=== PATIENT | male | born 1990 ===

== ENCOUNTER 2017-07-30 12:48 | Emergency (ER) | payer MEDICAID, OTHER ==
[2017-07-30 12:54] VITALS: BMI 29.0
[2017-07-30 13:05] VITALS: RESP 18; TEMP 98.3; O2SAT 100
[2017-07-30] MEDS ORDERED: Pantoprazole 40 mg EC Tab PO STA (13:45)
--- NOTE | 2017-07-30 13:48 | C.PDOC ---
History Of Present Illness 27-year-old male, presents to the emergency department with complaints of a non- productive cough that started a month ago, associated with epigastric burning, radiating up in the chest especially with heavy greasy meals. Patient also reports an episode of blood in sputum yesterday, prompting visit. Denies fever, chest pain, shortness of breath or any other associated symptoms. No other complaints at this time. Time Seen by Provider: 07/30/17 13:04 Chief Complaint (Nursing): Cough, Cold, Congestion History Per: Patient History/Exam Limitations: no limitations Current Symptoms Are (Timing): Still Present Past Medical History Reviewed: Historical Data, Nursing Documentation, Vital Signs Vital Signs: Last Vital Signs Temp 98.3 F 07/30/17 12:54 Pulse 81 07/30/17 14:01 Resp 18 07/30/17 14:01 BP 135/78 07/30/17 14:01 Pulse Ox 100 07/30/17 14:01 - Medical History PMH: Asthma Surgical History: Appendectomy Family History: States: No Known Family Hx - Social History Hx Alcohol Use: No Hx Substance Use: Yes - Immunization History Hx Tetanus Toxoid Vaccination: No Hx Influenza Vaccination: No Hx Pneumococcal Vaccination: No Review Of Systems Constitutional: Negative for: Fever, Chills Cardiovascular: Negative for: Chest Pain, Palpitations Respiratory: Positive for: Cough, Sputum. Negative for: Shortness of Breath Gastrointestinal: Positive for: Abdominal Pain. Negative for: Vomiting Musculoskeletal: Negative for: Neck Pain, Back Pain Neurological: Negative for: Weakness, Headache, Dizziness Physical Exam - Physical Exam Appears: Non-toxic, No Acute Distress Skin: Normal Color, Warm, Dry, No Rash Head: Atraumatic Eye(s): bilateral: Normal Inspection Nose: Normal Oral Mucosa: Moist Lips: Normal Appearing Neck: Normal ROM Chest: Symmetrical Cardiovascular: Rhythm Regular, No Murmur Respiratory: Normal Breath Sounds, No Accessory Muscle Use Gastrointestinal/Abdominal: Soft, No Tenderness Extremity: Normal ROM, No Deformity, No Swelling Neurological/Psych: Oriented x3, Normal Speech ED Course And Treatment O2 Sat by Pulse Oximetry: 100 (RA) Pulse Ox Interpretation: Normal Progress Note: CXR ordered and reviewed. Pt treated with Protonix. Disposition Counseled Patient/Family Regarding: Studies Performed, Diagnosis, Need For Followup, Rx Given - Disposition Referrals: [facility] [Outside] Disposition: HOME/ ROUTINE Disposition Time: 13:50 Condition: STABLE Additional Instructions: FOLLOW UP IN THE MEDICAL CLINIC WITHIN 1 WEEK USE MEDICATION DIRECTED AVOID SPICY/ACIDIC FOODS, AND DO NOT EAT WITHIN 2 -3 HOURS TO BEDTIME RETURN TO EMERGENCY ROOM IF SYMPTOMS WORSEN SEGUIMIENTO EN LA CLNICA MDICA DENTRO DE 1 SEMANA USE MEDICAMENTOS SEGN SE INDICA EVITE ALIMENTOS PICANTES / CIDOS, Y NO COMA EN EL PLAZO DE 2 A 3 HORAS REGRESE AL GILBERT DE EMERGENCIA SI LOS SNTOMAS EMPEORAN Prescriptions: Pantoprazole [Protonix EC Tab] 20 mg PO DAILY #30 ect Instructions: Acid Reflux (Gastroesophageal Reflux Disease), Adult (DC), Cough , Adult (DC) Forms: [employer] (Vietnamese), Work Excuse Print Language: SLOVAK - POA Present On Arrival: None - Clinical Impression Clinical Impression: Cough, GERD (gastroesophageal reflux disease) - Scribe Statement The provider has reviewed the documentation as recorded by the Scribe (Marilou Rivera) All medical record entries made by the Scribe were at my direction and personally dictated by me. I have reviewed the chart and agree that the record accurately reflects my personal performance of the history, physical exam, medical decision making, and the department course for this patient. I have also personally directed, reviewed, and agree with the discharge instructions and disposition.
[2017-07-30] MEDS ORDERED: Pantoprazole 40 mg EC Tab PO ONE (13:59)
[2017-07-30 14:02] VITALS: BP 135/78; PULSE 81
== END 2017-07-30 14:02 | disposition home or self-care (01) ==
LOC: C.ER 12:48
DX: K21.9 Gastro-esophageal reflux disease without esophagitis (principal); R05 Cough